=== PATIENT | female | born 1950 | race Caucasian/White ===

== ENCOUNTER 2018-01-31 09:26 | Outpatient (CLI) | payer MEDICARE, BC ==
--- NOTE | 2018-01-31 12:00 | MRI ---
MRI CERVICAL SPINE WITHOUT CONTRAST: HISTORY: Cervical radiculopathy. Disk herniation. Bilateral arm numbness. COMPARISON: None. TECHNIQUE: Cervical spine MRI is performed without intravenous Gadolinium administration. Multisequential, mult iplanar imaging is performed. FINDINGS: Grade I anterolisthesis of C2 upon C3 and C3 upon C4. Appropriate T1 marrow signal intensity of the cervical vertebrae. Cervical spine vertebral body heig ht is maintained. No fracture. No significant STIR hyperintensity to suggest edema or ligamentous i njury. Visualized brain parenchyma, cervicomedullary junction, cervical cord, and the upper thoracic cord pete ve a normal size and signal intensity. C2-C3: There is a central disk-osteophyte complex. No significant central canal stenosis. Foramen are patent. C3-C4: No significant disk-osteophyte complex. No significant central canal stenosis. Mild to mode rate right foraminal narrowing due to degenerative change of the uncovertebral joint. The left isidro en is patent. C4-C5: No significant disk-osteophyte complex. No significant central canal stenosis. Mild right f oraminal narrowing due to degenerative change of the uncovertebral joint. The left foramen is patent . C5-C6: Broad-based disk-osteophyte complex abuts the thecal sac. No significant central canal steno sis. Neural foramen are patent bilaterally. C6-C7: Broad-based disk-osteophyte complex with a small right paracentral component. No significant central canal stenosis. Neural foramen are patent. C7-T1 No significant disk-osteophyte complex. No significant central canal stenosis. Neural forame n are patent. IMPRESSION: Degenerative change of the cervical spine without significant central canal stenosis or foraminal suresh rowing. POS: [facility]
== END 2018-01-31 09:27 | disposition home or self-care (01) ==
LOC: TBSIIMAG 09:26
PROVIDERS: ATTEND Neurological Surgery
DX: M47.22 Other spondylosis with radiculopathy, cervical region (principal)
CPT/HCPCS: 72141

== ENCOUNTER 2018-02-17 07:56 | Day surgery (SDC) | payer MEDICARE, BC ==
[2018-02-14 09:59] VITALS: BMI 32.5
[2018-02-17 09:09] LABS: #Basophils 0.1 thou/uL (0.0-0.2); #Eosinphils 0.1 thou/uL (0.0-0.7); #Lymphocytes 2.2 thou/uL (1.20-3.40); #Monocytes 0.5 thou/uL (0.11-0.59); #Neutrophils 4.1 thou/uL (1.40-6.50); %Basophils 1.2 % (0.0-1.0); %Eosinophils 1.4 % (0.0-10.0); %Lymphocytes 31.3 % (21.0-51.0); %Monocytes 7.3 % (0.0-10.0); %Neutrophils 58.8 % (42.0-75.0); Hemoglobin 14.4 g/dL (12.0-16.0); Mean Corpuscular HGB CONC 33.5 g/dL (32.0-36.0); Mean Corpuscular Hemoglobin 32.4 pg (27.0-31.0); Mean Corpuscular Volume 96.7 fl (81.0-99.0); Mean Platelet Volume 7.8 fL (7.4-10.4); Platelet Count 221 thou/uL (130-400); Red Blood Cell (RBC) Count 4.45 mill/uL (4.20-5.40)
[2018-02-17 09:32] LABS: Anion Gap 10 mmol/L (10-20); BUN (Urea Nitrogen) 14 mg/dL (9.8-20.1); Calc. Creatinine Clearance 91 mL/min (70-130); Calcium 9.8 mg/dL (7.8-10.44); Carbon Dioxide 33 mmol/L (23-31); Chloride 100 mmol/L (98-107); Estimated GFR-MDRD 74; Glucose 101 mg/dL (80-115); Potassium 3.5 mmol/L (3.5-5.1); Sodium 139 mmol/L (136-145)
[2018-02-17] MEDS ORDERED: Scopolamine 1.5 mg/72 hour Patch ONE (09:53)
[2018-02-17] MEDS ORDERED: Midazolam HCl 2 mg/2 ml Vial ONE ×2 (09:54→10:41)
[2018-02-17] MEDS ORDERED: Sodium Chloride 0.9% 10 ML ONE (10:38)
[2018-02-17] MEDS ORDERED: Fentanyl 100 MCG/2 ML VIAL ONE ×2 (10:41→12:43)
[2018-02-17] MEDS ORDERED: Glycopyrrolate 0.2 MG/ML 5 ML SYRINGE ONE (11:43)
[2018-02-17] MEDS ORDERED: Lidocaine 1% PF 5 ML VIAL ONE (11:43)
[2018-02-17] MEDS ORDERED: Ketorolac Tromethamine 30 MG/ML VIAL ONE (11:43)
[2018-02-17] MEDS ORDERED: PROPOFOL 200 MG/20 ML VIAL ONE (11:43)
[2018-02-17] MEDS ORDERED: Ondansetron HCl/PF 4 MG/2 ML Vial ONE ×2 (11:43→12:56)
[2018-02-17] MEDS ORDERED: HYDROmorphone 0.5 MG/0.5 ML SYRINGE ONE ×3 (12:56→14:29)
--- NOTE | 2018-02-17 13:28 | OP ---
DATE OF PROCEDURE: 02/17/2018 SURGEON: Denis Calderon M.D. MANAGER RADIO: POOL [place] PROCEDURE: Anterior cervical discectomy C5-6 and C6-7, interbody arthrodesis, intravertebral biomech anical device, local morselized autograft, demineralized bone matrix, anterior titanium instrumentati on C5-6 and C6-7. PROCEDURE IN DETAIL: The patient was brought to the operating room and intubated. She was positione d supine with the head in modest extension on a gel-filled donut. Incision was made in the right pre cervical area and dissecting medial to the sternocleidomastoid muscle, we identified the anterior cer vical spine and our level was confirmed by x-ray. We placed distraction across C5-6 and completely d ecompressed the intravertebral discs down to the level of the foramen. The bony endplates were then decorticated for the purpose of arthrodesis and appropriately sized intravertebral biomechanical PEEK device was brought into the field, filled with demineralized bone matrix and local morselized autogr aft, and tapped into place securely at C5-6 and C6-7. Next, an anterior plate was brought in the fie ld and secured to C5, C6, and C7 using two 14 mm screws at each level. The wound was then extensivel y irrigated, immaculate hemostasis was secured, and the wound was closed in anatomic layers.
[2018-02-17] MEDS ORDERED: Promethazine HCl 25 MG/ML VIAL SLOW IVP PRN (13:31)
[2018-02-17] MEDS ORDERED: Promethazine HCl 25 MG/ML VIAL IM PRN ×2 (13:31→14:52)
[2018-02-17] MEDS ORDERED: Ondansetron HCl/PF 4 MG/2 ML Vial IVP PRN ×2 (13:31→14:53)
[2018-02-17] MEDS ORDERED: tiZANidine HCl 4 MG TAB PO PRN (14:52)
[2018-02-17] MEDS ORDERED: Milk Of Magnesia 30 ML UDCUP PO PRN (14:52)
[2018-02-17] MEDS ORDERED: diphenhydrAMINE 50 MG/ML VIAL IVP PRN (14:52)
[2018-02-17] MEDS ORDERED: Mag-Al 1200 mg/1200 mg/30 ML UDCUP PO PRN (14:52)
[2018-02-17] MEDS ORDERED: diphenhydrAMINE 25 MG CAP PO PRN (14:52)
[2018-02-17] MEDS ORDERED: Promethazine 25 MG TAB PO PRN (14:52)
[2018-02-17] MEDS ORDERED: Promethazine HCl 12.5 MG SUPP PR PRN (14:52)
[2018-02-17] MEDS ORDERED: traMADol HCl 50 MG TAB PO PRN ×2 (14:52)
[2018-02-17] MEDS ORDERED: HYDROcodone/Acetaminophen 10/325 mg Tablet PO PRN ×2 (14:56)
[2018-02-17] MEDS ORDERED: Morphine 4 MG/ML VIAL SLOW IVP PRN ×2 (14:57→14:58)
[2018-02-17] MEDS ORDERED: Morphine 4 MG/ML VIAL ONE (15:34)
[2018-02-17] MEDS ORDERED: Promethazine HCl 25 MG/ML VIAL ONE (15:43)
[2018-02-17] MEDS: Sodium Chloride 0.9% 1,000 ML IV SCH (18:04)
[2018-02-18] MEDS: Sodium Chloride 0.9% 1,000 ML IV SCH (05:55)
[2018-02-18 08:05] VITALS: BP 112/61; TEMP 98.1
--- NOTE | 2018-02-19 20:12 | EKG ---
Test Reason : PREOP Blood Pressure : / mmHG Vent. Rate : 056 BPM Atrial Rate : 056 BPM P-R Int : 162 ms QRS Dur : 078 ms QT Int : 496 ms P-R-T Axes : -01 025 008 degrees QTc Int : 478 ms Sinus bradycardia Otherwise normal ECG When compared with ECG of 15-SEP-2012 13:18, QT has lengthened Confirmed by BEN BROWN (2) on 02/19/2018 8:12:04 PM Referred By: YVONNE Confirmed By:BEN BROWN
== END 2018-02-18 09:23 | disposition home or self-care (01) ==
LOC: SDC 07:56 → SURG B 16:56 → SDC 02-18 09:23
PROVIDERS: ATTEND Neurological Surgery
PROC: 0RG2070 Fusion of 2 or more Cervical Vertebral Joints with Autologous Tissue Substitute, Anterior Approach, Anterior Column, Open Approach (ICD-10-PCS; principal; 2018-02-17)
PROC: 0RG20K0 Fusion of 2 or more Cervical Vertebral Joints with Nonautologous Tissue Substitute, Anterior Approach, Anterior Column, Open Approach (ICD-10-PCS; 2018-02-17)
PROC: 0RG20A0 Fusion of 2 or more Cervical Vertebral Joints with Interbody Fusion Device, Anterior Approach, Anterior Column, Open Approach (ICD-10-PCS; 2018-02-17)
DX: M54.12 Radiculopathy, cervical region (principal); I10 Essential (primary) hypertension; K21.9 Gastro-esophageal reflux disease without esophagitis; N32.89 Other specified disorders of bladder; Z88.5 Allergy status to narcotic agent; Z91.040 Latex allergy status; Z79.899 Other long term (current) drug therapy
CPT/HCPCS: 20930; 20936; 22551; 22552; 22853 ×2; 76001; 80048; 85025; 93005; C1713 ×2; C1776; 93010; A4216; J1170; J1885; J2001; J2250; J2270; J2405; J2550; J2704; J3010; J3490

== ENCOUNTER 2018-02-24 10:05 | Emergency (ER) | payer MEDICARE, BC ==
[~2018-02-24 10:05] MED LIST: ISOVUE-370 76%-LOCM 1 ML ONE
[2018-02-24 12:28] LABS: #Eosinphils 0.2 thou/uL (0.0-0.7); #Lymphocytes 2.1 thou/uL (1.20-3.40); #Monocytes 0.6 thou/uL (0.11-0.59); #Neutrophils 5.4 thou/uL (1.40-6.50); %Basophils 0.5 % (0.0-1.0); %Eosinophils 2.8 % (0.0-10.0); %Lymphocytes 25.3 % (21.0-51.0); %Monocytes 6.7 % (0.0-10.0); %Neutrophils 64.7 % (42.0-75.0); Hemoglobin 14.9 g/dL (12.0-16.0); Mean Corpuscular HGB CONC 33.8 g/dL (32.0-36.0); Mean Corpuscular Volume 97.7 fl (81.0-99.0); Mean Platelet Volume 7.5 fL (7.4-10.4); Platelet Count 251 thou/uL (130-400); RBC Distribution Width 11.7 % (11.5-14.5); Red Blood Cell (RBC) Count 4.52 mill/uL (4.20-5.40); White Blood Cell (WBC) Count 8.4 thou/uL (4.8-10.8)
[2018-02-24 12:48] LABS: ALT (SGPT) 30 U/L (8-55); AST (SGOT) 27 U/L (5-34); Albumin 4.2 g/dL (3.4-4.8); Alkaline Phosphatase 69 U/L (40-150); Anion Gap 9 mmol/L (10-20); BUN (Urea Nitrogen) 14 mg/dL (9.8-20.1); Bilirubin, Total 0.5 mg/dL (0.2-1.2); Calc. Creatinine Clearance 0 mL/min (70-130); Calcium 9.6 mg/dL (7.8-10.44); Carbon Dioxide 35 mmol/L (23-31); Chloride 98 mmol/L (98-107); Estimated GFR-MDRD 74; Globulin 3.3 g/dL (2.4-3.5); Glucose 114 mg/dL (80-115); Potassium 3.8 mmol/L (3.5-5.1); Protein, Total 7.5 g/dL (6.0-8.3); Sodium 138 mmol/L (136-145)
[2018-02-24] MEDS ORDERED: diphenhydrAMINE 25 MG CAP ONE (14:40)
[2018-02-24] MEDS ORDERED: Dexamethasone 4 mg/ml Vial ONE (14:40)
--- NOTE | 2018-02-24 15:25 | CT ---
POSTCONTRAST SOFT TISSUE NECK CT: Date: 02/24/18 HISTORY: Rash to the anterior neck surrounding surgical incision site, x4-5 days. Patient denies fever. Patien t is on Keflex for cellulitis. Rash appears to be worsening. Correlate for possible underlying absces s. COMPARISON: None. TECHNIQUE: Postcontrast soft tissue neck CT is performed in the axial plane. Reformatted images are submitted fo r interpretation. FINDINGS: Visualized brain parenchyma is unremarkable. Adequate aeration of the sinuses and mastoid air cells. Aerodigestive tract is patent. No mucosal abnormality. Epiglottis has a normal caliber. Preepiglottic fat is preserved. Midline fatty raphe of the tongue is preserved. No obvious masses in the oral cavity. Symmetric attenuation of the parotid and submandibular glands. Symmetric attenuation of the sternocle idomastoid muscles. Thyroid gland is unremarkable. There is a small amount of fluid in the prevertebral space, at the level of the cervical fusion hardw are, which is at the C5, C6, and C7 level. This fluid is presumed to be postoperative. The greatest d egree of fluid is just inferior to the C7 vertebral body. At this level, the fluid collection measure s 0.7 x 2.0 cm. Minimal peripheral enhancement, incomplete. There is a small focus of air attenuation with stranding of the subcutaneous fat along the anterolate ral right neck. This small focus of air may be postoperative. There is no significant fluid collectio n associated with the air. Central spinal canal and neural foramina appear to be grossly patent. There are vary degrees of isidro inal stenosis on the basis of degenerative change. No perihardware lucency to suggest complication wi th regards to the cervical fusion hardware. Upper mediastinum and lung apices are unremarkable. IMPRESSION: 1. Nonspecific air attenuation in the anterior right subcutaneous neck soft tissues, likely iatrogen ic. Minimal induration of the soft tissues is noted. No significant associated drainable abscess. 2. Prevertebral fluid at the level of cervical fusion hardware is presumed to be postoperative. Cont inued surveillance as clinically warranted. Fluid is essentially confined to just slightly above and below the level of surgery. 3. Degenerative changes of cervical spine as above. POS: [facility]
== END 2018-02-24 15:00 | disposition home or self-care (01) ==
LOC: ERS 10:05
DX: R21 Rash and other nonspecific skin eruption (principal); I10 Essential (primary) hypertension; F41.9 Anxiety disorder, unspecified
CPT/HCPCS: 36415; 70491; 80053; 83605; 85025; 87040; J1100

== ENCOUNTER 2018-03-05 15:51 | Outpatient (CLI) | payer MEDICARE, BC ==
--- NOTE | 2018-03-05 16:28 | RAD ---
THREE VIEWS LUMBAR SPINE: HISTORY: Cervicalgia. Followup surgery. COMPARISON: 07/24/15. FINDINGS: Anterior fusion plate with transvertebral body screws at C5, C6, and C7. No perihardware lucency. T he anterior fusion plate is flush against the vertebral bodies. Disk prosthesis at C5-C6 and C6-C7. There is anterolisthesis of C3 upon C4, similar to the prior exam. No significant prevertebral soft tissue swelling. No malalignment on the AP projection. Open mouth projection has limited evaluatio n of the odontoid process. IMPRESSION: Cervical fusion, uncomplicated as above. POS: [facility]
== END 2018-03-05 15:52 | disposition home or self-care (01) ==
LOC: TBSIIMAG 15:51
PROVIDERS: ATTEND Neurological Surgery
DX: M54.2 Cervicalgia (principal); Z98.1 Arthrodesis status
CPT/HCPCS: 72040

== ENCOUNTER 2018-04-08 15:01 | Outpatient (CLI) | payer MEDICARE, BC ==
--- NOTE | 2018-04-08 15:45 | RAD ---
THREE VIEWS CERVICAL SPINE: DATE: 04/08/18. HISTORY: Cervical region disk degeneration. Followup neck surgery 6 weeks ago. COMPARISON: 03/05/18. FINDINGS: C1 to the cervicothoracic junction is seen on the lateral view. Again noted are postsurgical changes related to anterior cervical fusion with an anterior plate and screws transfixing the C5-6 and C6-7 levels. Intradiskal prostheses are again noted. No hardware complication is seen. Spinal alignment is unchanged and there is mild straightening of the normal cervical lordotic curvature. Slight ante rolisthesis of C3 on C4 is again seen and stable. Vertebral body heights are within normal limits. There is no evidence of a fracture. Prevertebral soft tissues are within normal limits. No other in terval change. IMPRESSION: 1. Stable postsurgical changes of the cervical spine related to anterior cervical fusion of C5 throu gh C7 levels. 2. Stable slight anterolisthesis of C3 on C4. POS: [facility]
== END 2018-04-08 15:02 | disposition home or self-care (01) ==
LOC: TBSIIMAG 15:01
PROVIDERS: ATTEND Neurological Surgery
DX: M50.30 Other cervical disc degeneration, unspecified cervical region (principal); M43.12 Spondylolisthesis, cervical region; Z98.1 Arthrodesis status
CPT/HCPCS: 72040

== ENCOUNTER 2018-06-16 08:34 | Emergency (ER) | payer MEDICARE, BC ==
[2018-06-16 09:12] LABS: #Basophils 0.1 thou/uL (0.0-0.2); #Eosinphils 0.1 thou/uL (0.0-0.7); #Lymphocytes 2.6 thou/uL (1.20-3.40); #Monocytes 0.6 thou/uL (0.11-0.59); #Neutrophils 4.4 thou/uL (1.40-6.50); %Basophils 0.8 % (0.0-1.0); %Eosinophils 1.4 % (0.0-10.0); %Lymphocytes 33.1 % (21.0-51.0); %Monocytes 8.2 % (0.0-10.0); %Neutrophils 56.6 % (42.0-75.0); Hemoglobin 12.5 g/dL (12.0-16.0); Mean Corpuscular HGB CONC 31.7 g/dL (32.0-36.0); Mean Corpuscular Hemoglobin 31.2 pg (27.0-31.0); Mean Corpuscular Volume 98.5 fL (78.0-98.0); Mean Platelet Volume 8.3 fL (7.4-10.4); Platelet Count 196 thou/uL (130-400); RBC Distribution Width 12.1 % (11.5-14.5); Red Blood Cell (RBC) Count 3.99 mill/uL (4.20-5.40); White Blood Cell (WBC) Count 7.7 thou/uL (4.8-10.8)
--- NOTE | 2018-06-16 09:23 | RAD ---
PORTABLE CHEST 1 VIEW: DATE: 06/16/18. TIME: 8:08 a.m. HISTORY: Chest pain. FINDINGS: The heart size is normal. The lungs are expanded without focal areas of consolidation, pneumothorace s, or pleural effusions. There are postop changes in the left shoulder, cervical spine, and the righ t clavicle. IMPRESSION: No radiographic evidence of acute cardiopulmonary process. POS: [facility]
[2018-06-16 09:40] LABS: ALT (SGPT) 100 U/L (8-55); AST (SGOT) 59 U/L (5-34); Alkaline Phosphatase 51 U/L (40-150); Anion Gap 14 mmol/L (10-20); BUN (Urea Nitrogen) 19 mg/dL (9.8-20.1); Bilirubin, Total 0.7 mg/dL (0.2-1.2); CK (CPK) 71 U/L (29-168); Calc. Creatinine Clearance 0 mL/min (70-130); Calcium 8.9 mg/dL (7.8-10.44); Carbon Dioxide 23 mmol/L (23-31); Chloride 107 mmol/L (98-107); Estimated GFR-MDRD 73; Globulin 2.2 g/dL (2.4-3.5); Glucose 89 mg/dL (80-115); Potassium 4.1 mmol/L (3.5-5.1); Protein, Total 6.2 g/dL (6.0-8.3); Sodium 140 mmol/L (136-145)
[2018-06-16 09:45] LABS: CKMB 1.7 ng/mL (0-6.6); Troponin I Less than 0.010 ng/mL (< 0.028)
== END 2018-06-16 11:45 | disposition home or self-care (01) ==
LOC: ERS 08:34
DX: I10 Essential (primary) hypertension (principal); F41.9 Anxiety disorder, unspecified
CPT/HCPCS: 36415; 71045; 80053; 82553; 83880; 84484; 85025; 93005

== ENCOUNTER 2018-07-09 13:07 | Outpatient (CLI) | payer MEDICARE, BC ==
--- NOTE | 2018-07-09 15:13 | RAD ---
CERVICAL SPINE AP AND LATERAL STANDARD: Date: 07/09/18 HISTORY: M54.12 cervical radiculopathy. COMPARISON: Radiograph dated 04/08/18. FINDINGS: ACDF hardware is present at C5-C7. There is no acute fracture. No malalignment. Mild C4-C5 degenerati ve disc space narrowing. Open-mouth odontoid view is normal. IMPRESSION: Unchanged satisfactory appearance of the ACDF hardware. POS: [facility]
== END 2018-07-09 13:08 | disposition home or self-care (01) ==
LOC: TBSIIMAG 13:07
PROVIDERS: ATTEND Neurological Surgery
DX: M54.12 Radiculopathy, cervical region (principal); Z98.1 Arthrodesis status
CPT/HCPCS: 72040

== ENCOUNTER 2019-01-25 06:57 | Observation (INO) | payer MEDICARE, BC ==
[2019-01-25 07:50] LABS: #Basophils 0.1 thou/uL (0.0-0.2); #Eosinphils 0.1 thou/uL (0.0-0.7); #Lymphocytes 2.5 thou/uL (1.20-3.40); #Monocytes 0.6 thou/uL (0.11-0.59); #Neutrophils 5.3 thou/uL (1.40-6.50); %Basophils 0.8 % (0.0-1.0); %Eosinophils 1.1 % (0.0-10.0); %Monocytes 6.9 % (0.0-10.0); %Neutrophils 62.2 % (42.0-75.0); Hemoglobin 14.4 g/dL (12.0-16.0); Mean Corpuscular HGB CONC 33.6 g/dL (32.0-36.0); Mean Corpuscular Hemoglobin 32.9 pg (27.0-31.0); Mean Platelet Volume 7.4 fL (7.4-10.4); Platelet Count 223 thou/uL (130-400); RBC Distribution Width 12.2 % (11.5-14.5); Red Blood Cell (RBC) Count 4.37 mill/uL (4.20-5.40); White Blood Cell (WBC) Count 8.5 thou/uL (4.8-10.8)
[2019-01-25 07:58] LABS: ALT (SGPT) 33 U/L (8-55); AST (SGOT) 36 U/L (5-34); Albumin 4.2 g/dL (3.4-4.8); Alkaline Phosphatase 65 U/L (40-150); Anion Gap 11 mmol/L (10-20); BUN (Urea Nitrogen) 16 mg/dL (9.8-20.1); Bilirubin, Total 0.6 mg/dL (0.2-1.2); CK (CPK) 118 U/L (29-168); Calc. Creatinine Clearance 0 mL/min (70-130); Calcium 9.5 mg/dL (7.8-10.44); Carbon Dioxide 28 mmol/L (23-31); Chloride 105 mmol/L (98-107); Estimated GFR-MDRD 68; Globulin 3.1 g/dL (2.4-3.5); Glucose 89 mg/dL (80-115); Potassium 4.1 mmol/L (3.5-5.1); Protein, Total 7.3 g/dL (6.0-8.3); Sodium 140 mmol/L (136-145)
[2019-01-25] MEDS ORDERED: Aspirin Chewable 81 MG TAB ONE (08:14)
[2019-01-25] MEDS ORDERED: ADENOSINE 60 MG/20 ML VIAL ONE (09:44)
--- NOTE | 2019-01-25 09:48 | RAD ---
TWO VIEW CHEST SERIES: INDICATION: New-onset pain. Comparison Reference is made to 10/10/2013. FINDINGS: There is no lobar consolidation, effusion, or pneumothorax. Cardiac silhouette is within normal limi ts of size. Surgical changes are seen at the lower cervical spine. IMPRESSION: No focal consolidation. POS: [facility]
[2019-01-25] MEDS ORDERED: Nitroglycerin 0.4 MG TAB (25 Tab Bottle) PO PRN (10:01)
[2019-01-25] MEDS ORDERED: Ondansetron PF 4 MG/2 ML Vial IVP PRN (10:30)
[2019-01-25] MEDS ORDERED: Ondansetron ODT 4 MG TAB PO PRN (10:30)
[2019-01-25] MEDS ORDERED: Acetaminophen 325 MG TAB PO PRN (10:31)
[2019-01-25 10:33] VITALS: BMI 31.3
--- NOTE | 2019-01-25 10:41 | HP ---
PRIMARY CARE PROVIDER: Dr. Baldomero Ray. CRISIS CLINICIAN: Dr. Cote. HISTORY OF PRESENT ILLNESS: Ms. Bentley is a pleasant 68-year-old lady, who was seen at [facility] on 01/25/2019. She reports that she was watching television around 2130 hours yesterday when she had chest discomfort. She felt that her heart was beating fast. She checked her blood pressure, which was 188/104. She reports that her heart rate was in the 90s. She took atenolol, and the episode subsided. She describes having chest tightness across her chest, 04/15 to 8, nonradiating, no known aggravating or relieving factors. She woke up with similar symptoms around 02:00 a.m. and 05:00 a.m., with chest discomfort as described above. She therefore came to the emergency room. She also reports left upper extremity tingling on the way to the emergency room. REVIEW OF SYSTEMS: All other systems reviewed and found to be negative. PAST MEDICAL HISTORY: 1. Hypertension. 2. Abdominal cysts. 3. Diverticulitis. 4. Dyslipidemia. 5. Gastroesophageal reflux disease. PAST SURGICAL HISTORY: 1. Hysterectomy. 2. Colon resection. 3. Bladder lift. 4. Ileostomy, status post reversal. 5. Bilateral shoulder surgery. 6. C5, C6, C7 neck fusion surgery. PSYCHIATRIC HISTORY: Anxiety. SOCIAL HISTORY: Occasional alcohol use. No tobacco use or recreational drug use. FAMILY HISTORY: Significant for several family members with myocardial infarction and stroke in her mother's family. CODE STATUS: I discussed her code status. She is full code. ALLERGIES: CODEINE, LATEX. CURRENT MEDICATIONS: 1. Atenolol 50 mg daily. 2. Nexium 20 mg daily. 3. Premarin 0.3 mg daily. 4. Detrol 4 mg daily. 5. Meloxicam 15 mg daily. 6. Lipitor 20 mg daily. 7. Imitrex 50 mg daily. 8. Tizanidine 2 mg daily. 9. Promethazine 25 mg daily. 10. Vitamin D3 of 1000 units daily. 11. Vitamin B6 one tablet daily. 12. Probiotic 1 tablet daily. PHYSICAL EXAMINATION: GENERAL: On examination, Ms. Bentley is awake and alert, not in acute distress. VITAL SIGNS: Blood pressure is 147/71, pulse 57, respiratory rate 16, and oxygen saturation 97% on room air. She is afebrile. EYES: No scleral icterus. No conjunctival pallor. ENT: Moist mucosal membranes. No oropharyngeal erythema or exudates. NECK: Supple, nontender. Trachea is midline. RESPIRATORY: Accessory muscles of breathing are not active. Chest wall movements are symmetric bilaterally. Lungs are clear to auscultation without wheeze, rhonchi, or crepitations. CARDIOVASCULAR: S1 and S2 are heard, regular. Peripheral pulses palpable. No carotid bruit. No pericardial rub. ABDOMEN: Soft, nontender. Bowel sounds heard. No hepatomegaly. No splenomegaly. NEUROLOGIC: Cranial nerves 2 through 12 intact. Deep tendon reflexes 2+. MUSCULOSKELETAL: Power is 5/5 in all 4 extremities. SKIN: No rashes or subcutaneous nodules. LYMPHATIC: No cervical lymphadenopathy. PSYCHIATRIC: Normal mood. Normal affect. The patient is oriented to person, place, and time. LABORATORY DATA: Ms. Bentley's labs and investigations were reviewed. I reviewed her electrocardiogram, which shows normal sinus rhythm. No ST changes to suggest an acute coronary syndrome. I also reviewed her chest x-ray, which does not show any pulmonary infiltrates. She has an unremarkable CBC, elevated D-dimer of 0.55, mildly elevated AST of 36, otherwise normal comprehensive metabolic profile, normal troponin-I, and normal TSH. ASSESSMENT AND PLAN: Ms. Bentley is a pleasant 68-year-old lady, who was seen at [facility] on 01/25/2019. Her problem list includes: 1. Chest pain: Ms. Bentley is presenting with chest pain and palpitations. She has not been tachycardic in the emergency room. Chest pain has improved, although she continues to have left upper extremity tingling. She will be admitted to the hospital for rechecking her troponin-I and for stress test to rule out acute coronary syndrome. Given her elevated D-dimer, we will also check CT angiogram of the chest to rule out pulmonary embolism. 2. Hypertension: We will resume home medications, monitor vital signs and titrate antihypertensives as needed. 3. Dyslipidemia: Continue statin. 4. Gastroesophageal reflux disease: Continue Nexium. Many thanks for allowing me to participate in your patient's care. Please feel free to contact me with any questions or concerns. LEVEL OF RISK: High. LEVEL OF COMPLEXITY: High. Job ID: [id number]
[2019-01-25] MEDS ORDERED: ISOVUE-370 76%-LOCM 1 ML ONE (11:21)
[2019-01-25 11:53] LABS: Troponin I Less than 0.010 ng/mL (< 0.028)
--- NOTE | 2019-01-25 14:24 | NM ---
EXAM: NM Cardiac Stress W EF WF PROVIDED CLINICAL HISTORY: Chest pain. Dyslipidemia. Radiopharmaceuticals: 29.6 mCi technetium 99m sestamibi, IV at stress and 10.5 mCi technetium abscess meaty, IV at rest. MEDICATIONS: 14.4 mL (43.1 mg) adenosine, IV. COMPARISON: None FINDINGS: There is normal uptake and distribution of radiotracer seen throughout the left ventricular myocardiu m on both the resting and stress acquisitions. No reversible defect is seen between the stress and resting acquisitions. Quantitative analysis shows no reversible defect. The gated images demonstrate normal ventricular wall motion and wall thickening. Calculated left ventricular ejection fraction is 74%. IMPRESSION: 1. Normal myocardial perfusion study without evidence of a reversible defect seen to suggest ischemia . 2. Normal LVEF of 74%.
[2019-01-25 15:26] LABS: Troponin I Less than 0.010 ng/mL (< 0.028)
--- NOTE | 2019-01-25 16:04 | CT ---
CT ANGIOGRAM CHEST WITH CONTRAST, AND 3-D VOLUME RENDERING CLINICAL INDICATION: Chest pain COMPARISON: CTA chest on 12/24/2017 FINDINGS: Pulmonary arteries: No significant filling defect is identified within the pulmonary arteries. Aorta: The aorta is normal in caliber without evidence of an aortic dissection. Lungs: Minimal atelectasis is present at each lung base. The lungs are otherwise clear. No pulmonary nodule, mass, or pleural effusion is identified. Mediastinum: There is evidence of a small hiatal hernia. No enlarged lymph nodes are seen. There is a 2.4 cm oval-shaped low-density structure seen just inferior to the right main pulmonary ve in which abuts the pericardium. This is unchanged when compared to prior examination and was also seen on the study in 2010 suggesting a benign finding. This may potential represent pericardial cyst. Osseous structures: Post surgical changes left shoulder are noted. Mild degenerative changes are seen in the spine. Abdomen: Grossly within normal limits for arterial phase of imaging. IMPRESSION: 1. No CT evidence for pulmonary embolus. 2. Small hiatal hernia.
[2019-01-25 16:12] VITALS: BP 108/53; TEMP 97.5
[2019-01-26] MEDS ORDERED: Aspirin 325 mg Enteric Coated Tablet PO SCH (09:00)
== END 2019-01-25 17:41 | disposition home or self-care (01) ==
LOC: ERS 06:57 → 2SW 10:20
PROVIDERS: ADMIT Internal Medicine; ATTEND Internal Medicine
DX: R07.89 Other chest pain (principal); I10 Essential (primary) hypertension; E78.5 Hyperlipidemia, unspecified; K21.9 Gastro-esophageal reflux disease without esophagitis; F41.9 Anxiety disorder, unspecified; J44.9 Chronic obstructive pulmonary disease, unspecified; Z79.1 Long term (current) use of non-steroidal anti-inflammatories (NSAID); Z79.899 Other long term (current) drug therapy; Z88.5 Allergy status to narcotic agent; Z91.040 Latex allergy status; Z91.048 Other nonmedicinal substance allergy status; Z90.49 Acquired absence of other specified parts of digestive tract; Z98.1 Arthrodesis status
CPT/HCPCS: 71046; 71275; 78452; 82550; 84484 ×2; 85379; 93005; 93017; 99285; A9500; G0378; 36415; 80053; 84443; 85025; J0153; Q9966

== ENCOUNTER 2019-10-23 10:56 | Outpatient (CLI) | payer MEDICARE, BC ==
--- NOTE | 2019-10-23 12:07 | RAD ---
XR Chest Pa Lat STANDARD HISTORY: Preoperative evaluation COMPARISON: 01/25/2019 FINDINGS: The heart size is normal. The lungs are well expanded without focal areas of consolidation, pneumothorax or pleural effusions. There are degenerative changes in the thoracic spine. Postop changes and metallic hardware is seen in the lower cervical spine. IMPRESSION: No radiographic evidence of acute cardiopulmonary process.
[2019-10-23 12:28] LABS: #Basophils 0.1 thou/uL (0.0-0.2); #Lymphocytes 2.1 thou/uL (1.20-3.40); #Monocytes 0.5 thou/uL (0.11-0.59); #Neutrophils 7.4 thou/uL (1.40-6.50); %Basophils 0.7 % (0.0-1.0); %Eosinophils 0.4 % (0.0-10.0); %Lymphocytes 20.7 % (21.0-51.0); %Monocytes 5.2 % (0.0-10.0); %Neutrophils 73.1 % (42.0-75.0); Hemoglobin 14.6 g/dL (12.0-16.0); Mean Corpuscular HGB CONC 32.6 g/dL (32.0-36.0); Mean Corpuscular Hemoglobin 31.9 pg (27.0-31.0); Mean Corpuscular Volume 97.8 fL (78.0-98.0); Mean Platelet Volume 8.2 fL (7.4-10.4); Platelet Count 235 thou/uL (130-400); RBC Distribution Width 11.6 % (11.5-14.5); Red Blood Cell (RBC) Count 4.56 mill/uL (4.20-5.40); White Blood Cell (WBC) Count 10.1 thou/uL (4.8-10.8)
[2019-10-23 12:48] LABS: Anion Gap 11 mmol/L (10-20); BUN (Urea Nitrogen) 15 mg/dL (9.8-20.1); Calc. Creatinine Clearance 0 mL/min (70-130); Calcium 9.5 mg/dL (7.8-10.44); Carbon Dioxide 28 mmol/L (23-31); Chloride 105 mmol/L (98-107); Estimated GFR-MDRD 74; Glucose 86 mg/dL (80-115); Potassium 4.4 mmol/L (3.5-5.1); Sodium 140 mmol/L (136-145)
--- NOTE | 2019-10-27 10:30 | EKG ---
Test Reason : Blood Pressure : / mmHG Vent. Rate : 053 BPM Atrial Rate : 053 BPM P-R Int : 148 ms QRS Dur : 078 ms QT Int : 462 ms P-R-T Axes : -06 026 026 degrees QTc Int : 433 ms Sinus bradycardia Cannot rule out Anterior infarct , age undetermined Abnormal ECG When compared with ECG of 25-JAN-2019 07:10, No significant change was found Confirmed by BEN BROWN (2) on 10/27/2019 10:30:13 AM Referred By: ELLEN Confirmed By:BEN BROWN
== END 2019-10-23 10:57 | disposition home or self-care (01) ==
LOC: LABBT 10:56
PROVIDERS: ATTEND Specialist
DX: Z01.818 Encounter for other preprocedural examination (principal); K64.8 Other hemorrhoids; K64.4 Residual hemorrhoidal skin tags
CPT/HCPCS: 71046; 80048; 85025; 93005; 93010

== ENCOUNTER 2019-10-27 08:10 | Day surgery (SDC) | payer MEDICARE, BC ==
[2019-10-23 11:04] VITALS: BMI 32.7
[2019-10-27] MEDS ORDERED: Ketorolac Tromethamine 30 MG/ML VIAL ONE (09:35)
[2019-10-27] MEDS ORDERED: ceFOXitin 2 GM/50 ML Duplex BAG ONE (09:35)
[2019-10-27] MEDS ORDERED: Acetaminophen 500 MG TAB ONE (09:35)
[2019-10-27] MEDS ORDERED: Fentanyl 100 MCG/2 ML VIAL ONE (09:54)
[2019-10-27] MEDS ORDERED: HYDROmorphone 0.5 MG/0.5 ML SYRINGE ONE (09:55)
[2019-10-27] MEDS ORDERED: Bupivacaine 0.25% HCL 30 ML VIAL ONE (09:59)
[2019-10-27] MEDS ORDERED: Lidocaine 1% w/Epinephrine 1:100K 20 ML VIAL ONE (09:59)
[2019-10-27] MEDS ORDERED: Lidocaine 2% Jelly 5 ML TUBE ONE (09:59)
[2019-10-27] MEDS ORDERED: Meperidine HCl/PF 25 MG/ML VIAL SLOW IVP PRN (10:43)
[2019-10-27] MEDS ORDERED: Promethazine HCl 25 MG/ML VIAL SLOW IVP PRN (10:43)
[2019-10-27] MEDS ORDERED: HYDROmorphone 2 MG/ML VIAL SLOW IVP PRN (10:43)
[2019-10-27] MEDS ORDERED: Dexamethasone 20 MG/5 ML VIAL ONE (10:45)
[2019-10-27] MEDS ORDERED: Lidocaine 1% PF 5 ML VIAL ONE (10:45)
[2019-10-27] MEDS ORDERED: Ondansetron PF 4 MG/2 ML Vial ONE (10:45)
[2019-10-27] MEDS ORDERED: PROPOFOL 200 MG/20 ML VIAL ONE (10:45)
[2019-10-27] MEDS ORDERED: Succinylcholine Chloride 20 MG/ML 10 ml SYRINGE FS ONE (10:45)
[2019-10-27] MEDS ORDERED: Rocuronium Bromide 10 MG/ML (10ML VIAL) ONE (10:45)
[2019-10-27] MEDS ORDERED: Meperidine HCl/PF 25 MG/ML VIAL ONE ×2 (11:39→14:56)
--- NOTE | 2019-10-27 16:48 | OP ---
DATE OF PROCEDURE: 10/27/2019 PREOPERATIVE DIAGNOSIS: Internal and external hemorrhoids. POSTOPERATIVE DIAGNOSIS: Internal and external hemorrhoids. PROCEDURES PERFORMED: PPH stapled hemorrhoidectomy, external hemorrhoidectomy x2 columns. TIP PUNCHER: Saji Bales, medical student. ANESTHESIA: General endotracheal. INDICATIONS: The patient is a 69-year-old white female. She presents with prolapsing internal hemorrhoids and persistently bothersome external hemorrhoids. She is taken to the operating room at this time for treatment of both. DESCRIPTION OF OPERATION: Informed consent was obtained. The patient was taken to the operating room, where general anesthesia was obtained with the patient in supine position. She was rolled over into prone pierre-knife position. The buttocks were taped apart and prepped with Betadine and draped in sterile fashion. Local anesthetic was infiltrated in a 4-quadrant intersphincteric fashion using a mixture of 1% lidocaine with epinephrine and 0.25% Marcaine. The external hemorrhoids were easily visible. There were two primary complexes, one of these was anteriorly at about the 12 o'clock radian and the other one was located about the 7 o'clock radian. The anal canal was gently dilated, and the dilator was passed internally, followed by the anal retractor, which was secured in place with 2-0 silk sutures. Partial obturator was utilized to place a pursestring suture of 2-0 Prolene several centimeters proximal to the dentate line. The staple was then obtained and maximally opened. The anvil was positioned proximal to the pursestring suture. The suture was then secured around the post of the stapler. The tails of the suture were pulled through the lateral openings in the stapler. With tension on the suture line, the stapler was closed. The posterior vaginal wall was checked to make sure it was not involved, and the staple was then fired. Staple was removed, and the specimen was inspected. It was consistent in width and thickness throughout. Attention was turned to the staple line. There was surprisingly absolutely no oozing from any portion of the staple line. There were two segments of it that were reinforced with 3-0 Vicryl suture because of possible small mucosal defects. The anal retractor was then removed. Attention was then turned to the external hemorrhoids. Each of these was grasped and excised in a radial elliptical fashion. The defect was then closed with a running locking suture of 3-0 Vicryl. When completed, both suture lines were hemostatic and there was no evidence of any anal stenosis. Avitene was placed within the anal canal, and dry gauze dress was placed externally along with mesh pants. There were no complications. The patient tolerated the procedure well and was taken to recovery room in stable condition. Job ID: [id number]
== END 2019-10-27 16:35 | disposition home or self-care (01) ==
LOC: SDC 08:10
PROVIDERS: ATTEND Specialist
PROC: 06BY3ZC Excision of Hemorrhoidal Plexus, Percutaneous Approach (ICD-10-PCS; principal; 2019-10-27)
PROC: 06BY3ZC Excision of Hemorrhoidal Plexus, Percutaneous Approach (ICD-10-PCS; 2019-10-27)
DX: K64.8 Other hemorrhoids (principal); K64.4 Residual hemorrhoidal skin tags; K21.9 Gastro-esophageal reflux disease without esophagitis; G43.909 Migraine, unspecified, not intractable, without status migrainosus; I10 Essential (primary) hypertension; Z79.1 Long term (current) use of non-steroidal anti-inflammatories (NSAID); Z79.899 Other long term (current) drug therapy; Z88.5 Allergy status to narcotic agent; Z91.040 Latex allergy status; Z90.49 Acquired absence of other specified parts of digestive tract
CPT/HCPCS: J0694; J1100; J1170; J1885; J2001; J2175; J2405; J2704; J3010; S0020

== ENCOUNTER 2020-06-30 12:21 | Outpatient (CLI) | payer MEDICARE, BC ==
--- NOTE | 2020-06-30 15:54 | NM ---
EXAM: NM Hida Scan W Drug PROVIDED CLINICAL HISTORY: Epigastric abdominal pain. COMPARISON: None FINDINGS: There is normal uptake and excretion of radiotracer by the liver. Gallbladder activity is visualized by 11 minutes with increasing activity in the gallbladder imaging up to 60 minutes. Bowel activity is visualized by approximately 4 minutes. After 60 minutes of imaging, 8 ounces of ensure was adminis tered by mouth. A gallbladder ejection fraction of 76% was obtained. Normal gallbladder ejection fraction is greater than 33%. IMPRESSION: 1. No evidence of a cystic or common duct obstruction. 2. Normal gallbladder ejection fraction.
== END 2020-06-30 12:22 | disposition home or self-care (01) ==
LOC: NM 12:21
PROVIDERS: ATTEND Physician Assistant Medical
DX: R10.13 Epigastric pain (principal)
CPT/HCPCS: 78227; A9537

== ENCOUNTER 2020-07-04 10:04 | Outpatient (CLI) | payer MEDICARE, BC ==
--- NOTE | 2020-07-04 10:24 | RAD ---
Radiograph thoracic spine 3 views: HISTORY: 69-year-old female with mid back pain FINDINGS: No scoliosis. Pedicles appear to be grossly intact on AP view. Multilevel discogenic degenerative joe nges, mild and moderate, throughout most of the levels, especially the mid levels. Vertebral body heights are maintained. ACDF hardware in cervical spine. IMPRESSION: 1.) No compression fracture. 2) thoracic spondylosis consisting of multilevel mild to moderate degenerative disc disease.
== END 2020-07-04 10:05 | disposition home or self-care (01) ==
LOC: BICRAD 10:04
PROVIDERS: ATTEND Internal Medicine Gastroenterology
DX: R10.13 Epigastric pain (principal); M47.814 Spondylosis without myelopathy or radiculopathy, thoracic region; M51.34 Other intervertebral disc degeneration, thoracic region
CPT/HCPCS: 72072

== ENCOUNTER 2022-09-07 19:17 | Emergency (ER) | payer MEDICARE, BC ==
[2022-09-07] MEDS ORDERED: Aspirin Chewable 81 MG TAB ONE (19:47)
[2022-09-07 19:52] LABS: #Basophils 0.1 thou/uL (0.0-0.2); #Eosinphils 0.1 thou/uL (0.0-0.7); #Lymphocytes 2.3 thou/uL (1.20-3.40); #Monocytes 0.6 thou/uL (0.11-0.59); #Neutrophils 5.1 thou/uL (1.40-6.50); %Basophils 0.8 % (0.0-1.0); %Eosinophils 1.1 % (0.0-10.0); %Lymphocytes 27.7 % (21.0-51.0); %Monocytes 7.1 % (0.0-10.0); %Neutrophils 63.3 % (42.0-75.0); Hemoglobin 14.5 g/dL (12.0-16.0); Mean Corpuscular Hemoglobin 32.4 pg (27.0-31.0); Mean Corpuscular Volume 98.3 fl (78.0-98.0); Mean Platelet Volume 8.4 fL (7.4-10.4); Platelet Count 228 10x3/uL (130-400); Red Blood Cell (RBC) Count 4.46 mill/uL (4.20-5.40); White Blood Cell (WBC) Count 8.1 10x3/uL (4.8-10.8)
[2022-09-07 20:19] LABS: ALT (SGPT) 18 U/L (8-55); AST (SGOT) 26 U/L (5-34); Albumin 4.5 g/dL (3.4-4.8); Alkaline Phosphatase 80 U/L (40-110); Anion Gap 12 mmol/L (10-20); BUN (Urea Nitrogen) 14 mg/dL (9.8-20.1); Bilirubin, Total 0.4 mg/dL (0.2-1.2); Calc. Creatinine Clearance 0 mL/min (70-130); Calcium 9.9 mg/dL (7.8-10.44); Carbon Dioxide 27 mmol/L (23-31); Chloride 104 mmol/L (98-107); Estimated GFR 78; Globulin 3.1 g/dL (2.4-3.5); Glucose 95 mg/dL (83-110); Lipase 33 U/L (8-78); Potassium 4.3 mmol/L (3.5-5.1); Protein, Total 7.6 g/dL (5.8-8.1); Sodium 139 mmol/L (136-145)
[2022-09-07] MEDS ORDERED: FENTANYL 50 MCG/ML 1 ML VIAL ONE (22:45)
== END 2022-09-07 22:57 | disposition home or self-care (01) ==
LOC: ERS 19:17
DX: R07.9 Chest pain, unspecified (principal); M54.6 Pain in thoracic spine; I10 Essential (primary) hypertension; K21.9 Gastro-esophageal reflux disease without esophagitis
CPT/HCPCS: 71045; 80053; 83690; 84484; 85025; 85379; 93005; J3010; 96374

== ENCOUNTER 2025-06-04 08:12 | Outpatient (CLI) | payer MEDICARE ==
[2025-06-04] MEDS ORDERED: Iopamidol 370 76% 100 ML VIAL ONE (15:31)
== END 2025-06-04 08:13 | disposition home or self-care (01) ==
LOC: CT 08:12
PROVIDERS: ATTEND Physician Assistant Medical
DX: R10.32 Left lower quadrant pain (principal); R19.4 Change in bowel habit; R11.0 Nausea; K57.30 Diverticulosis of large intestine without perforation or abscess without bleeding; K44.9 Diaphragmatic hernia without obstruction or gangrene; Z98.890 Other specified postprocedural states
CPT/HCPCS: 74177

== ENCOUNTER 2025-09-22 15:30 | Emergency (ER) | payer BC ==
[2025-09-22] MEDS ORDERED: Ketorolac Tromethamine 30 MG (1 mL) VIAL ONE (17:14)
== END 2025-09-22 18:29 | disposition home or self-care (01) ==
LOC: ERS 15:30
DX: M25.552 Pain in left hip (principal); M79.605 Pain in left leg; I10 Essential (primary) hypertension
CPT/HCPCS: 72192; 96372; J1885